=== PATIENT | male | born 1955 | race Caucasian/White ===

== ENCOUNTER 2017-03-22 12:46 | Emergency (ER) | payer OTHER ==
[~2017-03-22] VITALS: Ht 170.2 cm; Wt 100.0 kg
[~2017-03-22 12:46] MED LIST: ASPI325T PO; COZA50TA PO; GABA100C4 PO; METO50TA PO; RANI150 PO
[2017-03-22 13:03] VITALS: BP 215/124; PULSE 64; RESP 18; TEMP 97.8; O2SAT 96
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
[2017-03-22] MEDS ORDERED: HYDROmorphone HCL PF 1 MG/ML VIAL IV PUSH ONE ×2 (13:15→15:30)
[2017-03-22] MEDS ORDERED: SODIUM CHLOR 0.9% 1000 ML INJ 1,000 ML IV ONE (13:15)
[2017-03-22] MEDS ORDERED: ONDANSETRON HCL 4 MG/2 ML VIAL IV PUSH ONE (13:15)
[2017-03-22 13:27] LABS: AUTOMATED NEUTROPHIL # 5.7 TH/MM3 (1.8-7.7); BASOPHIL # 0.1 TH/MM3 (0-0.2); BASOPHIL % 0.9 % (0.0-2.0); EOSINOPHIL # 0.2 TH/MM3 (0-0.4); EOSINOPHIL % 2.1 % (0.0-4.0); HEMATOCRIT 39.5 % (39.0-51.0); LYMPH % 14.3 % (9.0-44.0); LYMPHOCYTE # 1.1 TH/MM3 (1.0-4.8); MEAN CELL VOLUME 99.9 FL (80.0-100.0); MEAN CORPUSCULAR HEMOGLOBIN 33.6 PG (27.0-34.0); MEAN CORPUSCULAR HGB CONC 33.6 % (32.0-36.0); MONO % 3.8 % (0.0-8.0); NEUT % 78.9 % (16.0-70.0); PLATELET COUNT 205 TH/MM3 (150-450); RED BLOOD COUNT 3.95 MIL/MM3 (4.50-5.90); RED CELL DISTRIBUTION WIDTH 13.1 % (11.6-17.2); WHITE BLOOD COUNT 7.4 TH/MM3 (4.0-11.0)
[2017-03-22 13:33] LABS: HEMO FLAGS DIFF FINAL
[2017-03-22 13:46] LABS: CHLORIDE 107 MEQ/L (98-107); SODIUM (NA) 140 MEQ/L (136-145)
[2017-03-22 13:50] LABS: ANION GAP 8 MEQ/L (5-15); APTT (PATIENT) 22.8 SEC (24.3-30.1); BICARBONATE 25.5 MEQ/L (21.0-32.0); BLOOD UREA NITROGEN 18 MG/DL (7-18); INTERNATIONAL NORMALIZED RATIO 0.9 RATIO; PROTHROMBIN TIME - PATIENT 10.3 SEC (9.8-11.6)
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
[2017-03-22 13:53] LABS: ALT (GPT) 22 U/L (12-78); AST (GOT) 17 U/L (15-37); GLOMERULAR FILTRATION RATE 83 ML/MIN (>89)
[2017-03-22 13:54] LABS: TOTAL BILIRUBIN ADULT 0.7 MG/DL (0.2-1.0)
[2017-03-22 13:56] LABS: ALKALINE PHOSPHATASE 62 U/L (45-117)
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
[2017-03-22] MEDS ORDERED: IOHEXOL 350 MG/ML 10 ML VIAL (for RAD DIAG) IVCONTRAST ONE (14:21)
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
[2017-03-22] MEDS ORDERED: ZOFR4TAB3 SL (15:27)
[2017-03-22] MEDS ORDERED: HYDR-3583 PO (15:27)
[2017-03-22 16:05] VITALS: BP 198/112
--- NOTE | 2017-03-23 14:41 | EKG ---
Date Performed: 03/22/2017 Time Performed: 13:21:38 PTAGE: 61 years EKG: Sinus rhythm NORMAL ECG Compared to prior tracing no significant change PREVIOUS TRACING : 05/03/2015 17.08 DOCTOR: Rochelle Yu Interpretating Date/Time 03/23/2017 14:37:09
== END 2017-03-22 16:08 | disposition home or self-care (01) ==
LOC: PHED 12:46
DX: S22.42XA Multiple fractures of ribs, left side, initial encounter for closed fracture (principal); M54.2 Cervicalgia; M54.5 Low back pain; V43.52XA Car driver injured in collision with other type car in traffic accident, initial encounter
CPT/HCPCS: 70450; 71010; 71260; 72125; 72131; 74177; 80053; 85025; 85610; 85730; 86850; 86900; 86901; 93005; 96374; 96375; 96376; 99285; J1170; J2405; J7030; Q9967